=== PATIENT | female | born 2000 | race American Indian/Alaskan Native ===

== ENCOUNTER 2020-12-21 14:01 | Emergency (ER) | payer OTHER ==
[2020-12-21 14:52] VITALS: BP 138/79
--- NOTE | 2020-12-21 15:51 | Event Note ---
ED Screening Note ED Screening Note: n/v that began 4 days ago states she went to another hospital in [place] 2 days ago was diagnosed with gastritis no diarrhea no abd pain no urinary symptoms PMHx none no allergies to meds LNMP: yesterday +heavy marijuana, every other day This initial assessment/diagnostic orders/clinical plan/treatment(s) is/are subject to change based on patients health status, clinical progression and re- assessment by fellow clinical providers in the ED. Further treatment and workup at subsequent clinical providers discretion. Patient/guardian urged not to elope from the ED as their condition may be serious if not clinically assessed and managed. Initial orders include: labs, UA
[2020-12-21 16:47] LABS: Basophils % (Auto) 0.5 % (0.0-1.8); Hematocrit 36.9 % (30.3-42.9); Hemoglobin 12.2 gm/dl (10.1-14.3); Lymphocytes # (Auto) 3.2 K/mm3 (1.2-5.4); Mean Corpuscular HGB Conc 33 % (30-34); Mean Corpuscular Volume 76 fl (79-97); Monocytes # (Auto) 0.7 K/mm3 (0.0-0.8); Monocytes % (Auto) 7.7 % (0.0-7.3); Platelet Count 350 K/mm3 (140-440); Red Blood Count 4.84 M/mm3 (3.65-5.03); Red Cell Distribution Width 17.6 % (13.2-15.2)
[2020-12-21 17:07] LABS: Bilirubin,Urine NEG (Negative); Blood,Urine MOD (Negative); Color,Urine Yellow (Yellow); Mucus,Urine FEW /HPF
[2020-12-21 17:13] LABS: Alanine Aminotransferase 20 units/L (7-56); Albumin 4.3 g/dL (3.9-5); BUN/Creatinine Ratio 9; Blood Urea Nitrogen 8 mg/dL (7-17); Calcium 9.2 mg/dL (8.4-10.2); Hemolysis Index 2
[2020-12-21] MEDS ORDERED: diphenhydrAMINE 50 MG/ML VIAL IV ONE (17:48)
[2020-12-21] MEDS ORDERED: HALOPERIDOL LACTATE 5 MG/1 ML INJ IV ONE (17:48)
--- NOTE | 2020-12-21 17:50 | Emergency Department Report ---
ED General Adult HPI - General Chief complaint: Abdominal Pain Stated complaint: VOMITING Time Seen by Provider: 12/21/20 15:49 Source: patient Mode of arrival: Ambulatory Limitations: No Limitations - History of Present Illness Initial comments: 20-year-old female patient with history of gastritis presents to the emergency department with complaints of lower abdominal pain, nausea, and vomiting for 4 days. Patient states she was evaluated at another local hospital 2 days ago, at which time she was diagnosed with a urinary tract infection and discharged home. No imaging was performed. She has been taking antibiotics for her urinary tract infection. States her lower abdominal pain has worsened since her last evaluation. No prior abdominal surgeries. Patient does endorse alcohol and marijuana use. No known sick contacts. Last menstrual period ended today. No concern for STD exposure. Denies fever, chills, hematemesis, diarrhea, vaginal bleeding, vaginal discharge, back pain, rectal bleeding. Denies all other complaints at this time. - Related Data Allergies Allergy/AdvReac Type Severity Reaction Status Date / Time No Known Allergies Allergy Verified 12/21/20 14:52 ED Review of Systems ROS: Stated complaint: VOMITING Other details as noted in HPI Other: GENERAL: Negative for fever, chills, weight change, anorexia, fatigue. ENT: Negative for ear pain, difficulty hearing, sore throat, nasal congestion, epistaxis. CARDIOVASCULAR: Negative for chest pain, palpitations, lower extremity swelling. PULMONARY: Negative for cough, dyspnea, wheezing, orthopnea, cyanosis. GASTROINTESTINAL: Positive for abdominal pain, nausea, vomiting. MUSCULOSKELETAL: Negative for joint pain, joint swelling, myalgias, back pain, neck pain. NEUROLOGICAL: Negative for headache, seizure, syncope, paresthesias, weakness. INTEGUMENTARY: Negative for erythema, rash, diaphoresis, laceration, ecchymosis. HEMATOLOGICAL: Negative for hemoptysis, hematemesis, hematochezia, hematuria. PSYCHIATRIC: Negative for hallucinations, suicidal ideation, homicidal ideation, anxiety, depression. ED Past Medical Hx - Past Medical History Previous Medical History?: No - Surgical History Past Surgical History?: No - Social History Smoking Status: Current Some Day Smoker Substance Use Type: None ED Physical Exam - General Limitations: No Limitations - Other Other exam information: General: Awake and alert. No acute distress. Head: Atraumatic, normocephalic. Eyes: EOMI. Pupils are equal and round. Normal sclera and conjunctiva. ENT: Oral mucosa is moist. Normal pharyngeal exam. Neck: Supple. No lymphadenopathy. Pulmonary: No respiratory distress. Clear to auscultation bilaterally. Cardiac: Regular rate and rhythm. Pulses are palpable and equal bilaterally. No lower extremity cyanosis or edema. Skin: Warm and dry. No rashes. Abdomen: Soft, non-protuberant. Diffuse lower abdominal tenderness without guarding, rigidity, or rebound. Bowel sounds are normal. No organomegaly or masses noted. Back: Normal alignment. No CVA tenderness. Extremities: Symmetrical. Full range of motion intact. Neurological: Alert and oriented, appropriately interactive, no focal deficits. Psych: Cooperative. Appropriate mood and affect. Speech is evenly metered. Thou ghts are logically construed. ED Course Vital Signs 12/21/20 14:50 Temperature 98.2 F Pulse Rate 67 Respiratory 18 Rate Blood Pressure 138/79 O2 Sat by Pulse 100 Oximetry ED Medical Decision Making - Lab Data Result diagrams: 12/21/20 16:17 12/21/20 16:17 - Medical Decision Making Differential diagnosis including but not limited to: appendicitis, cholecystitis, cholelithiasis, pyelonephritis, nephrolithiasis, urinary tract infection, , pancreatitis, ovarian cyst/torsion, pelvic inflammatory disease, peptic ulcer disease, cannabis hyperemesis syndrome On reevaluation, patient is stable and symptoms have improved. No further vomiting in the emergency department. Labs are unremarkable. Urinalysis shows evidence of urinary tract infection. Patient states she was already diagnosed with a UTI during her last ED visit and is currently taking antibiotics. test is negative. Since this is patient's second visit for this problem within 4 days, CT scan of the abdomen/pelvis was obtained for further evaluation. No acute findings. Patient's abdominal pain may be related to her UTI however cannabis hyperemesis syndrome is also possibility. Patient was advised to discontinue marijuana use. She was offered prescription for antiemetics, but politely refused. She will be discharged home to continue her antibiotics as previously prescribed. Patient expressed understanding and is agreeable to plan of care. Strict return precautions provided. Repeat exam is unremarkable and benign. History, exam, diagnostic testing, and current condition do not suggest worrisome pathology to warrant further testing, continued ED treatment, admission, or surgical evaluation at this point. Given the low probability of a significant medical illness, it would be more likely to result in harm than benefit to perform further testing at this stage. Discussed findings, presumptive diagnosis, need for follow-up and specific signs/symptoms that should prompt immediate return to the emergency department. Instructions w ere explained in detail to the patient in addition to giving written discharge information. Patient expressed understanding and was given the opportunity to ask questions, all of which were satisfactorily answered prior to discharge home. Critical care attestation.: If time is entered above; I have spent that time in minutes in the direct care of this critically ill patient, excluding procedure time. ED Disposition Clinical Impression: Nonspecific abdominal pain, History of marijuana use Urinary tract infection Qualifiers: Urinary tract infection type: acute cystitis Hematuria presence: with hematuria Qualified Code(s): N30.01 - Acute cystitis with hematuria Disposition: TO HOME OR SELFCARE Is pt being admited?: No Does the pt Need Aspirin: No Condition: Stable Instructions: Urinary Tract Infection, Adult, Qscn-ye-[id number], Abdominal Pain (ED) Additional Instructions: Continue all medications as previously prescribed. Rest. Drink plenty fluids. There is a possibility your symptoms are related to marijuana use. Please discontinue using marijuana. Follow-up with your primary care provider this week. Call tomorrow to schedule appointment. Return to the emergency department immediately for new or worsening symptoms. Referrals: [facility] [Outside] - 3-5 Days Time of Disposition: 19:33
--- NOTE | 2020-12-21 19:14 | Cat Scan Report ---
CT ABDOMEN AND PELVIS WITH CONTRAST INDICATION / CLINICAL INFORMATION: lower abdominal pain, nausea, vomiting. TECHNIQUE: Axial CT images were obtained through the abdomen and pelvis after 100 cc Omnipaque [address] scans at this location are performed using CT dose reduction for ALARA by means of automated exposure control. COMPARISON: None available. FINDINGS: LOWER CHEST: No significant abnormality. LIVER: No significant abnormality. GALLBLADDER: No significant abnormality. BILE DUCTS: No significant abnormality. PANCREAS: No significant abnormality. SPLEEN: No significant abnormality. ADRENALS: No significant abnormality. RIGHT KIDNEY / URETER: No significant abnormality. LEFT KIDNEY / URETER: No significant abnormality. STOMACH / SMALL BOWEL: No significant abnormality. COLON: No significant abnormality. APPENDIX: No significant abnormality. PERITONEUM: No free fluid. No free air. No fluid collection. LYMPH NODES: No significant adenopathy. AORTA / ARTERIES: No significant abnormality. IVC / VEINS: No significant abnormality. URINARY BLADDER: No significant abnormality. REPRODUCTIVE ORGANS: No significant abnormality. ADDITIONAL FINDINGS: None. SKELETAL SYSTEM: No significant abnormality. IMPRESSION: No significant abnormality of the abdomen or pelvis. Signer Name: Lane Benitez MD Signed: 12/21/2020 7:09 PM Workstation Name: [id number]
== END 2020-12-21 19:50 | disposition home or self-care (01) ==
LOC: ED 14:01
DX: N39.0 Urinary tract infection, site not specified (principal); F12.10 Cannabis abuse, uncomplicated; F17.200 Nicotine dependence, unspecified, uncomplicated
CPT/HCPCS: 36415; 74177; 80053; 81001; 83690; 84703; 85025; 96374; 96375; 99284; J1200; J1630; Q9967